=== PATIENT | male | born 1985 | race Hispanic/Latino ===

== ENCOUNTER 2020-05-22 21:27 | Emergency (ER) | payer BC ==
[2020-05-22] MEDS ORDERED: Lorazepam 1 MG TAB ONE (22:15)
== END 2020-05-22 22:25 | disposition home or self-care (01) ==
LOC: ERS 21:27
DX: F41.9 Anxiety disorder, unspecified (principal); E78.5 Hyperlipidemia, unspecified; F17.210 Nicotine dependence, cigarettes, uncomplicated
CPT/HCPCS: 71045; 93005